=== PATIENT | male | born 1965 | race Caucasian/White ===

== ENCOUNTER → 2025-08-11 08:56 | Outpatient (REF) | payer OTHER, SELFPAY | LOC: RCS 08:56 | PROVIDERS: ATTENDING PHYSICIAN Student in an Organized Health Care Education/Training Program | DX: R07.89 Other chest pain (principal) | CPT/HCPCS: 93017; 93350 ==

== ENCOUNTER 2025-08-16 07:26 | Day surgery (SDC) | payer OTHER, SELFPAY ==
[2025-08-16] VITALS (10 sets, daily range): BP systolic 114–160; BP diastolic 69–86; BMI 23.4
[2025-08-16] MEDS: NSS 234 ML IV (08:09)
--- NOTE | 2025-08-16 09:47 | ITS.CL.CATH ---
[facility] - Catheterization
Cardiac Catheterization
Procedure Report:
CARDIAC CATHETERIZATION REPORT
Date of Procedure: 08/16/2025
Referring: Yasir Osorio M.D.
INDICATION: NSVT on stress echocardiogram.
PROCEDURE:
1. Left heart catheterization.
2. Coronary angiography.
A total of 19 minutes of procedural/moderate sedation was utilized. An independent medical claims assistant was present to assist with and help manage the patient's level of consciousness and physiologic status.
ACCESS:
1. 6 [place] right radial artery using a modified Seldinger technique.
CATHETERS:
1. 5 [place] JR4.
2. 5 Faroese JL 3.5.
HEMODYNAMIC DATA
Weight (kg): 78.0
AO (s/d/x, mmHg): 137/72/100
LV (s/x mmHg): 137/12
AV gradient (x, mmHg): None.
LEFT VENTRICULOGRAPHY: Not performed.
CORONARY ANGIOGRAPHY
Dominance: Right.
Left Main: Normal size, bifurcating vessel. There is no coronary artery disease.
LAD: Normal size vessel giving rise to 1 large diagonal. The diagonal bifurcates into a lateral and medial branch. The medial branch further bifurcates into a secondary lateral branch and a medial branch which parallels the distal LAD.
There is a 30-40% lesion in the mid LAD after the origin of the diagonal. There is a 50% lesion in the ostium of the small secondary medial branch of the diagonal that parallels the distal LAD.
Ramus: Congenitally absent.
Circumflex: Normal size vessel giving rise to 2 obtuse marginals. There is no coronary artery disease.
RCA: Large size, dominant vessel with a notable posterolateral arcade. There is no coronary artery disease.
INTERVENTION(S)
None.
Closure Device: Vascular band.
Radiation (mGy): 247.96
DAP (cm2.Gy): 19.8471
Fluoroscopy time (minutes): 1.9
CONCLUSIONS
1. Right dominant circulation with a 30-40% lesion in the mid LAD after the origin of the first diagonal and a 50% lesion in the ostium of the secondary medial diagonal branch.
2. Normal filling pressures (LVEDP = 12 mmHg at 78.0 kg).
RECOMMENDATIONS:
1. Expectant management after cardiac catheterization via right radial approach.
2. Limited weight bearing on the right wrist for one week.
3. Aggressive primary prevention with high-dose, high potency statin. Goal LDL <55.
4. Continue metoprolol succinate for suppression of nonsustained VT as seen on stress echocardiogram.
5. Stable for outpatient follow-up.
Copy to: Yasir Osorio M.D., Too Carr M.D.
Jose A Walker DO, FACC, FACP
== END 2025-08-16 12:30 | disposition home or self-care (01) ==
LOC: CATH 07:26
PROVIDERS: ATTENDING PHYSICIAN Internal Medicine Cardiovascular Disease; FAMILY PHYSICIAN Nurse Practitioner Gerontology; OTHER PHYSICIAN Student in an Organized Health Care Education/Training Program
DX: I25.10 Atherosclerotic heart disease of native coronary artery without angina pectoris (principal); I47.20 Ventricular tachycardia, unspecified; I34.1 Nonrheumatic mitral (valve) prolapse; E10.311 Type 1 diabetes mellitus with unspecified diabetic retinopathy with macular edema; Z79.4 Long term (current) use of insulin; Z79.82 Long term (current) use of aspirin
CPT/HCPCS: 99152; 93458; 99153; C1769; C1894; Q9967